=== PATIENT | male | born 1960 | race Caucasian/White ===

== ENCOUNTER 2020-10-16 18:20 | Emergency (ER) | payer OTHER, SELFPAY ==
[2020-10-16] VITALS (15 sets, daily range): BP systolic 128–155; BP diastolic 77–94; PULSE 76–100; RESP 17–28; TEMP 36.3; O2SAT 87–97
--- NOTE | ~2020-10-16 | XR_ITS ---
EXAMINATION: XR chest 1V portable DATE: 10/16/2020 19:22 INDICATION: Transient alteration of awareness, COPD and shortness of breath TECHNIQUE: frontal view of the chest was obtained. COMPARISON: Chest radiograph dated 04/09/2018 FINDINGS: New subtle patchy airspace opacities in the right mid and bilateral lower lung zones. No pleural effu gerardo or pneumothorax. The cardiomediastinal silhouette is normal. Moderate thoracic spondylosis. IMPRESSION: 1. Subtle patchy airspace opacities in the right mid and bilateral lower lung zones which could repre sent pneumonia, atelectasis and/or pulmonary edema. Reviewed, dictated and finalized at location A. RAL LAW CLERK IMPRESSION: 1. Subtle patchy airspace opacities in the right mid and bilateral lower lung z ones which could represent pneumonia, atelectasis and/or pulmonary edema.
--- NOTE | ~2020-10-16 | CT_ITS ---
EXAMINATION: CT brain wo con DATE: 10/16/2020 19:30 INDICATION: Confusion TECHNIQUE: Computed tomography (CT) of the head was performed without intravenous contrast. Sagittal and coronal reconstructions were performed. The mA was adjusted according to patient size. Iterative reconstruction technique was employed. The dose-length product was 681.00 mGy-cm. COMPARISON: None FINDINGS: No acute intracranial hemorrhage, acute infarction or abnormal extra axial fluid collection. There is mild scattered white matter hypoattenuation consistent with chronic small vessel ischemic disease. S ymmetric prominence subarachnoid spaces overlying the convexities consistent with mild age-appropriat e diffuse cerebral volume loss. Ventricles are normal and symmetric. No mass/mass effect. Mucosal thi ckening the bilateral maxillary sinuses. The orbits and mastoid air cells are normal. Intracranial ca lcified cerebral atherosclerosis is noted. IMPRESSION: 1. No acute intracranial process. 2. Age-related changes including mild diffuse on loss and mild scattered white matter hypoattenuation consistent with chronic small vessel ischemic disease. Reviewed, dictated and finalized at location A. UTER LAB ASSISTANT
--- NOTE | 2020-10-16 18:24 | ECG_ITS ---
Measurements Intervals [place] Rate: 74 P: 72 WI: 205 QRS: 198 QRSD: 96 T: 79 QT: 408 QTc: 455 Interpretive Statements SINUS RHYTHM BORDERLINE AV CONDUCTION DELAY BASELINE ARTIFACT- II, III, AVR, AVL, AVF, V3-V6 BORDERLINE ECG Electronically Signed On 10-21-2020 12:24:04 REAL ESTATE SALES ASSOCIATE by Alberto Queen D.O.
--- NOTE | 2020-10-16 18:40 | PC.NURSE ---
provider in room.
--- NOTE | 2020-10-16 18:41 | ED.GENADULT ---
HPI - General Adult General Chief complaint: Shortness of Breath/Dyspnea Stated complaint: generalized weakness Time Seen by Provider: 10/16/20 18:24 Source: patient Mode of arrival: ambulatory Limitations: no limitations History of Present Illness HPI narrative: A 59-year-old male presents to the emergency department with complaints of shortness of breath and generally not feeling well. Patient states that this has been going on for some time. He is very sleepy and difficult to arouse at times. He denies any chest pain, abdominal pain. Related Data Home Medications Medication Instructions Recorded Confirmed No Home Medications 10/16/20 10/16/20 Allergies Allergy/AdvReac Type Severity Reaction Status Date / Time Penicillins Allergy Unknown Other Verified 10/16/20 18:36 Review of Systems Review of Systems: Narrative: CONSTITUTIONAL: Denies fever, chills, or sweats. EYES: Denies visual changes, redness, or discharge. ENT: Denies rhinorrhea, congestion, sore throat, or otalgia. CARDIOVASCULAR: Denies chest pain, palpitations, or edema. RESPIRATORY: Denies cough or dyspnea. GASTROINTESTINAL: Denies abdominal pain, nausea, vomiting, or diarrhea. GENITOURINARY: Denies dysuria or hematuria. SKIN: Denies rash or itching. MUSCULOSKELETAL: Denies back pain, joint pain, or myalgia. NEUROLOGIC: Denies headache, numbness, dizziness, or weakness. PSYCHIATRIC: Denies anxiety or depression. Exam Narrative: Exam Narrative: GENERAL: Well-appearing, well-nourished, and in no acute distress. HEAD: Normocephalic, atraumatic. EYES: PERRLA and EOMI. ENT: Nares clear, no rhinorrhea or epistaxis. Mucous membranes moist. Oropharynx without tonsillar hypertrophy exudate or other lesions. Bilateral TMs pearly cobb nonbulging NECK: Supple. No adenopathy or masses. No carotid bruits or JVD CHEST: Clear to auscultation. No respiratory distress. No wheezes rales or rhonchi HEART: Regular rate and rhythm. No murmur heard. Normal peripheral pulses. ABDOMEN: Soft, nontender, nondistended, normal active bowel sounds. EXTREMITIES: Normal range of motion. No edema. SKIN: Warm, dry, no rash. NEURO: No focal deficits. Alert and oriented x3. Somnolent, easily arousable PSYCH: Normal mood and affect. Course Reevaluation(s) Reevaluation #1: Reevaluated patient and provided care update. He had been sleeping comfortably during this time. He states that after the IV fluids and some rest he is feeling much better. Patient does state that he is ready to go. Time: 23:25 Vital Signs Vital signs: Vital Signs Temperature 36.3 C L 10/16/20 18:27 Pulse Rate 76 10/16/20 18:27 Respiratory Rate 22 H 10/16/20 18:27 Blood Pressure 136/90 10/16/20 18:27 Pulse Oximetry 97 10/16/20 18:27 Temperature 36.3 C L 10/16/20 18:27 Pulse Rate 96 10/16/20 23:21 Respiratory Rate 24 H 10/16/20 23:21 Blood Pressure 149/94 H 10/16/20 23:21 Pulse Oximetry 95 10/16/20 23:21 Medical Decision Making MDM Narrative Medical decision making narrative: In brief this was a 59-year-old male [facility] complaints of generalized fatigue and malaise. It was noted that the patient was cold upon arrival, he is known to be homeless. Work-up of the patient did show slight elevation in his creatinine. His last one in the system was approximately 3 years ago and it is unclear if this creatinine is his baseline or a acute elevation. Patient was given IV fluids for this. He did also have a mild elevation in his CK again was given fluids for this. Patient's hemogram was unremarkable. The rest of his examination was unremarkable as well. Upon discharge patient was given information for local homeless shelters so that way he had somewhere to go. Medical Records Medical records reviewed: Yes I reviewed the patient's medical records. Vital Signs Vital Signs: Vital Signs Temperature 36.3 C L 10/16/20 18:27 Pulse Rate 76 10/16/20 18:27 Respir
--- NOTE | 2020-10-16 19:15 | PC.NURSE ---
resting on stretcher. appears comfortable. on school lunch monitor. appears to be sleeping most of the time. arouses easily. labs drawn.
[2020-10-16 19:25] LABS: Basophils Percent Auto 0.4 % (0.2-1.2); Eosinophils Percent Auto 0.2 % (0-4.4); Hematocrit 46.5 % (42.0-52.0); Hemoglobin 15.6 g/dL (14.0-18.0); Immature Granulocyte Absolute 0.02 K/mm3 (0.00-0.031); Immature Granulocyte Percent A 0.4 % (0-0.5); Immature Platelet Fraction Pct 1.6 % (0.9-11.2); Lymphocytes Absolute Auto 0.76 K/mm3 (0.9-3.2); Lymphocytes Percent Auto 13.6 % (18.3-44.2); Mean Corpuscular HGB Conc 33.5 g/dl (32-36); Mean Corpuscular Volume 83.3 fl (80-100); Mean Platelet Volume 8.5 fl (7.4-10.4); Monocytes Absolute Auto 0.3 K/mm3 (0.1-0.6); Monocytes Percent Auto 5.2 % (2.6-8.5); Neutrophils Absolute Auto 4.5 K/mm3 (1.3-6.7); Neutrophils Percent Auto 80.2 % (45.5-73.1); Platelet Count Result 135 k/mm3 (150-375); Red Blood Count 5.58 M/mm3 (4.6-6.20); Red Cell Distribution Width 13.4 % (11.5-14.5); White Blood Count 5.6 K/mm3 (4.5-10.0)
[2020-10-16 19:34] LABS: Acetaminophen < 10 ug/mL (10-30); Ammonia < 9 umol/L (9-30); Ethanol < 10 mg/dL (<10); Salicylate < 1.0 mg/dL (2-20)
[2020-10-16 19:35] LABS: Alanine Aminotransferase 29 U/L (4-50); Albumin Level 4.6 g/dL (3.5-5.1); Alkaline Phosphatase 83 U/L (38-126); Anion Gap 10 mmol/L (8-16); Aspartate Amino Transferase 53 U/L (17-59); Bilirubin,Total 0.6 mg/dL (0.2-1.3); Blood Urea Nitrogen 37 mg/dL (9-20); Calcium 9.5 mg/dL (8.4-10.2); Carbon Dioxide 30 mmol/L (22-30); Chloride 91 mmol/L (98-107); Creatine Kinase 340 U/L (55-170); Estimated CRCL calculation 37 ml/min; Estimated Glomerular Filt Rate 32; Glucose 112 mg/dL (75-110); Potassium 4.4 mmol/L (3.4-5.0); Sodium 131 mmol/L (137-145)
[2020-10-16 19:47] LABS: Troponin I 0.034 ng/mL (0.000-0.034)
--- NOTE | 2020-10-16 20:14 | PC.NURSE ---
resting on stretcher. continues to sleep off and on. appears comfortable. no distress noted. arouses easily. laser/electro optics technician to room to collect urine specimen.
[2020-10-16 20:31] LABS: Alveolar/Arterial O2 Gradient 40.3 mmHg; Base Excess ABG -5.7 mEq/l (+/-2.0); Device ROOM AIR; Fractional Inspired Oxygen 21 %; Modified Allen's Test Pass; Oxygen Content ABG 19.3 %vol (16.0-22.0); Oxygen Saturation ABG 92.7 % (95.0-100.0); Oxyhemoglobin 91.1 % THb (90.0-100.0); PCO2 ABG 35.2 mmHg (35.0-45.0); PO2 ABG 67.3 mmHg (80.0-100.0); Site Drawn LEFT RADIAL; Total Hemoglobin 15.1 g/dL (12.0-18.0); pH ABG 7.351 (7.350-7.450)
--- NOTE | 2020-10-16 21:29 | PC.NURSE ---
patient asleep. awakened easily. urinal given. patient advised we need urine specimen to complete his ED work up.
--- NOTE | 2020-10-16 21:40 | PC.NURSE ---
urine specimen collected and sent to lab.
--- NOTE | 2020-10-16 21:47 | PC.NURSE ---
report given to Kasi CIFUENTES
[2020-10-16 21:49] LABS: T4 Thyroxine 7.08 ug/dL (5.53-11.0)
[2020-10-16 21:52] LABS: Add Urine Microscopic? YES; Appearance Urine Clear (Clear); Bacteria Urine Trace /hpf; Bilirubin Urine Negative (Negative); Blood Urine Negative (Negative); Color Urine Amber (Yellow); Glucose Urine UA Negative (Negative); Hyaline Casts Urine 30-49 /lpf; Ketones Urine Negative (Negative); Leukocyte Esterase Ur Negative LEU/UL (Negative); Mucus Urine Few /lpf; Nitrate Urine Negative (Negative); Protein Urine 2+ mg/dL (Negative); RBC Urine 0-2 /hpf (0-2); Specific Grav Ur 1.023 (1.001-1.035); Squamous Epithelial Cell Urine Few /hpf (Few)
[2020-10-16] MEDS: LACTATED RINGERS 1,000 ML 999 ML IV CONT (21:55)
[2020-10-16 23:15] LABS: Barbiturate Screen Urine Negative (Negative); Benzodiazepines Screen Urine Negative (Negative)
[2020-10-16 23:18] LABS: Cannabinoid Screen Urine Negative (Negative); Cocaine Screen Urine Negative (Negative); Methadone Screen Urine Negative (Negative); Opiate Screen Urine Negative (Negative); Phencyclidine Screen Urine Negative (Negative)
[2020-10-16 23:36] LABS: Amphetamine Screen Urine Positive (Negative)
[2020-10-17 00:04] VITALS: BP 150/85; PULSE 83; RESP 24; O2SAT 95
== END 2020-10-17 00:05 | disposition home or self-care (01) ==
PROVIDERS: Emergency Provider Emergency Medicine; PCP Internal Medicine Gastroenterology
DX: R53.83 Other fatigue (principal); R53.81 Other malaise; E86.0 Dehydration; Z59.0 Homelessness; R91.8 Other nonspecific abnormal finding of lung field
CPT/HCPCS: 36415; 36600; 70450; 71045; 80053; 80307; 81001; 82140; 82550; 82805; 84436; 84443; 84484; 85025; 85055; 93005; 96360; 99284; J7120

== ENCOUNTER 2021-03-05 23:54 | Observation (INO) | payer SELFPAY ==
--- NOTE | 2021-03-05 | ECG_ITS ---
Measurements Intervals [place] Rate: 99 P: 73 MO: 180 QRS: 91 QRSD: 94 T: 57 QT: 349 QTc: 449 Interpretive Statements SINUS RHYTHM POSSIBLE LEFT ATRIAL ENLARGEMENT RIGHT AXIS DEVIATION BASELINE ARTIFACT- I, II, III, AVR, AVL, AVF, V1-V6 BORDERLINE ECG Electronically Signed On 03-07-2021 11:58:35 CDT by Alberto Queen D.O.
--- NOTE | ~2021-03-05 | CT_ITS ---
EXAMINATION: CT brain wo con EXAM DATE: 03/06/2021 01:40 INDICATION: Unresponsive. Altered mental status. TECHNIQUE: Spiral CT of the head was performed without contrast. Axial, coronal and sagittal images were reviewed. The dose-length product (DLP) for this examination was 605.33 mGy-cm. The exposure w as tailored according to patient size, and iterative reconstruction (ASIR) was used as additional dos e reduction technique. Comparison is made to prior examination from 10/16/2020. FINDINGS: There is no acute intraparenchymal hemorrhage. No evidence of intraparenchymal brain mass lesion. No evidence of acute infarction. Please note that initial head CT has limited sensitivity f or small or acute infarctions. There is mild periventricular and subcortical hypodensity, nonspecific but probably related to small vessel ischemic disease. There is moderate prominence of the sulci a nd ventricles related to cerebral atrophy. There is intracranial carotid arteriosclerosis. There a re no extra-axial collections. There is no mass effect or midline shift. There is disconjugate gaze . Soft tissue is unremarkable. Evidenced maxillary sinus mucoperiosteal disease and old right orbita l wall fracture. IMPRESSION: 1. No acute intracranial findings. 2. Chronic age related findings. Reviewed, dictated and finalized at location A.
--- NOTE | ~2021-03-05 | CT_ITS ---
EXAMINATION: CT soft tissue neck wo con EXAM DATE: 03/06/2021 05:16 INDICATION: Stridor. TECHNIQUE: Spiral CT of the neck was performed without contrast. Axial, coronal and sagittal images were reviewed. The dose-length product (DLP) for this examination was 509.94 mGy-cm. The exposure was tailored according to patient size (auto mA exposure control), and iterative reconstruction (ASIR ) was used as additional dose reduction technique. There is no prior study for comparison. FINDINGS: The thyroid gland is unremarkable. The submandibular and parotid glands are symmetric. There is no cervical lymphadenopathy. There are no masses identified. The superior mediastinum is unremarkable. There is moderate to severe stenosis of the trachea lumen for short segment, about 3.5 cm below the g lottis, with the lumen measuring 4 x 8 mm. Could be from prior intubation. Mild to moderate thickening of the epiglottis and aryepiglottic folds. Parapharyngeal and pre-glottic fat planes are preserved. Limited evaluation of cervical vessels on this noncontrast study. The orbits are unremarkable. Mild to moderate right maxillary sinus mucoperiosteal thickening. Apical emphysema. There is right clavicular fracture medially with comminution, age indeterminate. No solid bone bridging. Severe cervical disc disease. IMPRESSION: 1. Age-indeterminate right clavicular fracture medially. 2. Mild to moderate epiglottis and aryepiglottic fold thickening. 3. 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 4. Emphysema. Reviewed, dictated and finalized at location A.
--- NOTE | ~2021-03-05 | CT_ITS ---
EXAMINATION: CT diagnostic chest wo con EXAM DATE: 03/06/2021 04:36 INDICATION: Dyspnea. TECHNIQUE: Spiral CT of the chest without contrast. Axial, coronal and sagittal images of the chest were reviewed. Coronal maximum intensity pixel images of chest reviewed. The dose-length product ( DLP) for this examination was 472.31 mGy-cm. The exposure was tailored according to patient size (au to mA exposure control), and iterative reconstruction (ASIR) was used as additional dose reduction te chnique. There is no prior study for comparison. FINDINGS: There is right lower lobe segmental, left lower lobe subsegmental atelectasis. Pulmonary v ascular congestion and some prominent dependent reticulation with groundglass opacities, atelectasis versus edema. Trace right pleural effusion. Some debris in the right lower lobe interlobar bronchus . There is no mediastinal, hilar or axillary lymphadenopathy. There is no pneumothorax. There is mild cardiomegaly. There is moderate coronary arterial calcification, arterial sclerosis. Upper ab domen is unremarkable. Chronic appearing T12 burst fracture with moderate to severe loss of this ve rtebral body height anteriorly and centrally, about 6 mm of retropulsion. Right clavicular mildly com minuted fracture medially without solid bone bridging, could be acute or subacute. IMPRESSION: 1. Right clavicular fracture medially, could be acute or subacute. Clinical correlation. 2. Mild cardiomegaly. Possible mild pulmonary edema. 3. Atelectasis, subsegmental in right lower lobe. 4. Chronic T12 burst fracture. Reviewed, dictated and finalized at location A. IMPRESSION: 1. Right clavicular fracture medially, could be acute or subacute. Clinical co rrelation. 2. Mild cardiomegaly. Possible mild pulmonary edema. 3. Atelectasis, subsegmental in right lower lobe. 4. Chronic T12 burst fracture.
--- NOTE | ~2021-03-05 | XR_ITS ---
EXAMINATION: XR chest 1V portable EXAM DATE: 03/06/2021 01:05 INDICATION: Found unresponsive. Shortness of breath. TECHNIQUE: Portable AP frontal chest x-ray was obtained. Comparison is made to prior examination from 01/14/2021. FINDINGS: Diffuse abnormal reticulonodular opacities, pneumonia and/or edema most likely. Please clin ically correlate. The cardiomediastinal silhouette is prominent but magnified on this AP technique. T here is no pneumothorax suspected. There are no pleural effusions. There are mild bony degenerative c hanges. Prior exam had small amount of basilar airspace disease. IMPRESSION: Diffuse abnormal reticulation, probably acute edema and/or pneumonia. Reviewed, dictated and finalized at location A. IMPRESSION: Diffuse abnormal reticulation, probably acute edema and/or pneumon ia.
[2021-03-05 23:52] VITALS: BP 152/97; PULSE 104; RESP 23; TEMP 36.5; O2SAT 100
[2021-03-05 23:58] VITALS: O2SAT 100
[2021-03-06] VITALS (51 sets, daily range): BP systolic 118–184; BP diastolic 76–127; PULSE 69–107; RESP 13–24; TEMP 36.2–37.1; O2SAT 91–100; BMI 23.9
[2021-03-06] MEDS: methylPREDNISolone SOD SUCC 125 MG VIAL IV PUSH (00:06)
--- NOTE | 2021-03-06 00:19 | PC.NURSE ---
Patient had a white pill that fell out of his pocket. Verified it on [facility], is 1mg lorazepam. ERP notifed. Pill also sent down to pharmacy to be verified.
[2021-03-06 00:29] LABS: Basophils Absolute Auto 0.1 K/mm3 (0.0-0.1); Eosinophils Absolute Auto 0.5 K/mm3 (0-0.3); Eosinophils Percent Auto 7.4 % (0-4.4); Hematocrit 44.1 % (42.0-52.0); Immature Granulocyte Absolute 0.04 K/mm3 (0.00-0.031); Immature Granulocyte Percent A 0.6 % (0-0.5); Lymphocytes Absolute Auto 1.36 K/mm3 (0.9-3.2); Lymphocytes Percent Auto 21.8 % (18.3-44.2); Mean Corpuscular HGB Conc 31.7 g/dl (32-36); Mean Corpuscular Hemoglobin 27.6 pg (26-34); Mean Platelet Volume 8.5 fl (7.4-10.4); Monocytes Absolute Auto 0.5 K/mm3 (0.1-0.6); Monocytes Percent Auto 8.2 % (2.6-8.5); Neutrophils Absolute Auto 3.8 K/mm3 (1.3-6.7); Platelet Count Result 178 k/mm3 (150-375); Red Blood Count 5.07 M/mm3 (4.6-6.20); Red Cell Distribution Width 13.9 % (11.5-14.5); White Blood Count 6.3 K/mm3 (4.5-10.0)
--- NOTE | 2021-03-06 00:29 | PC.NURSE ---
0026 Moises from pharmacy calls to inform this nurse that the medication that had fallen out of the patient's pocket was a viagra/sildenafil tab 100mg. ERP notified.
[2021-03-06 00:36] LABS: Alanine Aminotransferase 41 U/L (4-50); Albumin Level 4.1 g/dL (3.5-5.1); Alkaline Phosphatase 86 U/L (38-126); Anion Gap 9 mmol/L (8-16); Aspartate Amino Transferase 51 U/L (17-59); Bilirubin,Total 0.4 mg/dL (0.2-1.3); Blood Urea Nitrogen 18 mg/dL (9-20); Calcium 9.2 mg/dL (8.4-10.2); Carbon Dioxide 30 mmol/L (22-30); Chloride 102 mmol/L (98-107); Estimated Glomerular Filt Rate > 60; Ethanol < 10 mg/dL (<10); Glucose 103 mg/dL (75-110); Lactic Acid Reflex 0.8 mmol/L (0.7-2.1); Potassium 4.3 mmol/L (3.4-5.0); Sodium 141 mmol/L (137-145)
[2021-03-06 00:37] LABS: Prothrombin Time 13.9 Seconds (11.1-14.7)
[2021-03-06 00:38] LABS: Partial Thromboplastin Time 34.2 SECONDS (22.3-36.8)
[2021-03-06 00:39] LABS: Barbiturate Screen Urine Negative (Negative); Benzodiazepines Screen Urine Positive (Negative); Cannabinoid Screen Urine Negative (Negative); Cocaine Screen Urine Negative (Negative); Methadone Screen Urine Negative (Negative); Opiate Screen Urine Positive (Negative); Phencyclidine Screen Urine Negative (Negative)
[2021-03-06 00:50] LABS: Add Urine Microscopic? YES; Appearance Urine Clear (Clear); Bacteria Urine Trace /hpf; Bilirubin Urine Negative (Negative); Color Urine Amber (Yellow); Glucose Urine UA Negative (Negative); Ketones Urine Negative (Negative); Leukocyte Esterase Ur Trace LEU/UL (Negative); Mucus Urine Few /lpf; Nitrate Urine Negative (Negative); Protein Urine 1+ mg/dL (Negative); RBC Urine 0-2 /hpf (0-2); Specific Grav Ur 1.027 (1.001-1.035); Squamous Epithelial Cell Urine Few /hpf (Few); Transitional Epi Cells Urine Rare /hpf (None Seen)
[2021-03-06] MEDS: IPRATROPIUM BR 0.02% INH SOLN 0.5 MG/2.5 ML VIAL INHALATION ×3 (00:52→10:33)
[2021-03-06] MEDS: ALBUTEROL SULFATE NEB 2.5 MG/0.5 ML INH 5 MG INHALATION ×2 (00:52→05:59)
[2021-03-06 00:57] LABS: Alveolar/Arterial O2 Gradient 20.1 mmHg; Base Excess ABG 3.2 mEq/l (+/-2.0); Fractional Inspired Oxygen 30 %; HCO3 ABG 29.9 mEq/l (22.0-26.0); Oxygen Content ABG 19.9 %vol (16.0-22.0); Oxygen Saturation ABG 98.5 % (95.0-100.0); Oxyhemoglobin 95.2 % THb (90.0-100.0); PCO2 ABG 53.9 mmHg (35.0-45.0); PO2 ABG 130.5 mmHg (80.0-100.0); PO2 FiO2 Ratio Arterial Blood 4.35 %; Total Hemoglobin 14.7 g/dL (12.0-18.0); pH ABG 7.362 (7.350-7.450)
[2021-03-06 00:58] LABS: Device BIPAP; Site Drawn RIGHT BRACHIAL
[2021-03-06 00:59] LABS: Blood Urine Negative (Negative)
[2021-03-06 00:59] LABS: Expiratory Pressure 5 cmH2O; Inspiratory Pressure 15 cmH2O
[2021-03-06 00:59] LABS: NT Pro B Type Natriuretic Pept 304 pg/mL (5-100); Troponin I 0.018 ng/mL (0.000-0.034)
[2021-03-06] MEDS: NALOXONE HCL 0.4 MG/ML VIAL (01:00)
--- NOTE | 2021-03-06 01:04 | PC.NURSE ---
VORB 0100 give 0.4mg narcan IVP.
--- NOTE | 2021-03-06 01:08 | ED.GENADULT ---
HPI - General Adult General Chief complaint: Shortness of Breath/Dyspnea Stated complaint: SOB/ CPAP Source: RN notes reviewed History of Present Illness HPI narrative: Patient presents emergency department via EMS for altered mental status and shortness of breath. History is per EMS as the patient is unable to give any history EMS to been called to the house by a acquaintance of the patient and the patient has supposedly gone to the acquaintances house for amphetamine use and a sexual encounter with the acquaintance had gone to another room and when she returned the patient has been unresponsive and EMS have been called when EMS got there they did note there is inhaler by the patient the patient appeared to be in some respiratory distress. The patient was given 2 of Narcan with no change in mental status other than patient became mildly more combative patient will withdrawal to painful stimuli but does not follow any verbal commands. The acquaintance did not know the patient's name and no other identifiers on the patient Related Data Home Medications Medication Instructions Recorded Confirmed No Home Medications 03/06/21 03/06/21 Allergies Allergy/AdvReac Type Severity Reaction Status Date / Time Unable to Assess Allergy Verified 03/06/21 00:03 Review of Systems Review of Systems: ROS unobtainable: Yes unobtainable due to medical condition [facility] Family History Family History (Updated 03/06/21 @ 10:57 by eMghan Liang RN) Other Unknown family medical history Social History Social History Smoking packs per day: 0.5 Smoking cigarettes per day: 10.0 Years smoked: 47 Smoking pack-years: 23.50 Smoking status: Current every day smoker Tobacco type: cigarettes Alcohol intake: current Drinks per week: 2 Substance use: current Substance use type: amphetamines, opiates, painkillers and methamphetamine Gender identity (if verbalized by the patient): Male Sexual Orientation (if Verbalized by the Patient): Straight or Heterosexual Spiritual care concerns: No Comments Unable to obtain any past medical surgical or social history secondary to altered mental status Exam Narrative: Exam Narrative: APPEARANCE: Laying in bed with eyes closed no does not respond to verbal stimuli, withdrawals and swings with painful stimuli EYES: Bilateral pupils are pinpoint HEENT: Normocephalic, atraumatic, OMM RESPIRATORY: No respiratory distress decreased breath sounds in the bilateral lower lung rojo with wheezing in the upper lung rojo CARDIOVASCULAR: Regular rate and rhythm without murmurs rubs or gallops. ABDOMINAL: Soft, nontender, nondistended, no rebound or guarding MUSCULOSKELETAl: Moves all extremities. No clubbing, cyanosis or edema. NEURO: Unresponsive to verbal stimuli withdrawals to painful stimuli positive gag reflex SKIN:: Warm, dry. No rashes lesions or abrasions Course Course Emergency Course: Patient was noted to have a white pill in his pocket this pill was sent down to pharmacy for identification and it was determined that the pill was Viagra Plan discussed with Dr. Gu presentation work-up agrees with mission at this time request patient be admitted to the ICU Called discussed with Dr. Brown presentation work-up request CT of the chest for further evaluation of infiltrates. Accepts admission to ICU if requested by hospitalist service Dr. Gu came down to evaluate the patient again requests admission to the ICU Patient weaned off of BiPAP and is on 2 L nasal cannula Patient is now noted to be having some stridor Patient is progressively becoming more arousable he is not easily arousable with sternal rub he is not able to tell me his name is Sonal he does shake his head that he did drugs he does state he smokes there is a noted scar over the patient's trachea and when asked if he had a previous tracheostomy he shakes his head ye
--- NOTE | 2021-03-06 02:27 | PC.NURSE ---
Contacted lab to have CK added on. Spoke with Julia.
[2021-03-06 02:35] LABS: Creatine Kinase 161 U/L (55-170)
--- NOTE | 2021-03-06 04:15 | PC.NURSE ---
Patient taken of CPAP/BIPAP upon VORB and placed on 2L via NC. Patient tolerating well. Patient then taken to CT.
--- NOTE | 2021-03-06 05:29 | PC.NURSE ---
Patient's 3hour trop drawn and sent to lab.
--- NOTE | 2021-03-06 05:53 | PC.NURSE ---
Patient becoming more awake. Patient speaking with ERP and registration. Patient receiving a breathing treatment at this time.
[2021-03-06] MEDS: SODIUM CHLORIDE 0.9% IV 1,000 ML 999 ML IV CONT (05:59)
[2021-03-06 06:01] LABS: Troponin I 0.013 ng/mL (0.000-0.034)
--- NOTE | 2021-03-06 06:10 | ADMGEN ---
This patient, Flip Pruitt, was admitted to Intensive Care Unit-1. Patient/family oriented to hospital policies and general routines including ID bracelet, bed and alarms, visiting hours, pain management, procedures, bathroom and other care routines, personal items, smoking policy, room service/diet, and visiting hours. Information on how to activate the Rapid Response Team has been discussed. Patient/Family are encouraged to report perceived risks to care and to ask questions if they do not understand what they are told or what they should do.
--- NOTE | 2021-03-06 06:21 | PM.IMHP ---
H&P: HPI History of Present Illness Date/Time: 03/06/21 06:21 Chief Complaint: altered mental status, shortness of breath Narrative: Patient presents emergency department via EMS for altered mental status and shortness of breath. History is per EMS as the patient is unable to give any history. EMS to been called to the house by an acquaintance of the patient and the patient has supposedly gone to the acquaintances house for amphetamine use and a sexual encounter. When the acquaintance had gone to another room and when she returned the patient was found to be unresponsive and EMS was then called. When EMS got there they did note there is inhaler by the patient and the patient appeared to be in some respiratory distres. The pateint was given narcan with no change in mental status except the pateint became more combative. patient withdrew to painful stimuli but did not follow any verbal commands. He was then brought to the ED. Inthe ED, he was noted to be wheezy and hence put on bipap to help with his work of breathing. His vitals remained stable. He was unreposnive however was able to maintain his airway with good saturation. He withdrew to painful stimuli. His identification could not be verified nor his medical history. he had white pill in his pocket which was identified to be viagra. his labwork has been unreamarkable except for positive for opiates, benzos and meth. his ct head is negative. his cxr had some opacities bilaterally. ct cheest was done for tihs and noted to be bilateral atelectasis. While in the ED, he was noted to be more arousable slowly and was able to tell the ED physician his name. He had hx of previous tracheostomy for a throat cancer. he also admitted to using drugs which included meth. no further history could be elucidated during the evaluation Review of Systems Review of Systems: ROS unobtainable: Yes unobtainable due to mental status PMFSH Comments Past medical, surgical, family histoyr and social history could not be obatined at this time. Meds Home Medications and Allergies Allergies Allergy/AdvReac Type Severity Reaction Status Date / Time Unable to Assess Allergy Verified 03/06/21 00:03 Vital Signs Vital Signs - 24 hr 03/05/21 23:52 03/05/21 23:58 03/06/21 00:33 Temperature 97.7 F Pulse Rate 104 H 102 H Respiratory Rate 23 H 17 Blood Pressure 152/97 H Pulse Oximetry 100 100 03/06/21 00:45 03/06/21 00:46 03/06/21 00:47 Temperature Pulse Rate 103 H 103 H 96 Respiratory Rate 17 17 18 Blood Pressure 127/76 Pulse Oximetry 03/06/21 00:53 03/06/21 01:15 03/06/21 01:16 Temperature Pulse Rate 105 H 105 H 104 H Respiratory Rate 20 20 19 Blood Pressure 147/97 H Pulse Oximetry 03/06/21 01:30 03/06/21 01:31 03/06/21 01:43 Temperature Pulse Rate 105 H 101 H Respiratory Rate 20 20 Blood Pressure 154/97 H 131/92 H Pulse Oximetry 03/06/21 01:45 03/06/21 01:46 03/06/21 02:00 Temperature Pulse Rate 105 H 101 H 98 Respiratory Rate 18 16 14 Blood Pressure 118/84 Pulse Oximetry 03/06/21 02:15 03/06/21 02:16 03/06/21 02:30 Temperature Pulse Rate 99 99 98 Respiratory Rate 19 18 19 Blood Pressure 135/94 H Pulse Oximetry 03/06/21 02:31 03/06/21 02:43 03/06/21 02:44 Temperature 98.3 F Pulse Rate 98 97 105 H Respiratory Rate 19 19 20 Blood Pressure 140/88 140/88 Pulse Oximetry 98 99 03/06/21 02:45 03/06/21 02:46 03/06/21 03:00 Temperature Pulse Rate 98 96 98 Respiratory Rate 17 20 19 Blood Pressure 129/89 Pulse Oximetry 03/06/21 03:01 03/06/21 03:15 03/06/21 03:16 Temperature Pulse Rate 100 97 95 Respiratory Rate 22 H 17 15 Blood Pressure 132/93 H 134/89 Pulse Oximetry 03/06/21 03:30 03/06/21 03:31 03/06/21 03:45 Temperature Pulse Rate 98 97 96 Respiratory Rate 18 17 17 Blood Pressure 139/90 Pulse Oximetry 100 03/06/21 03:46 03/06/21 04:01 03/06/21 04:04 Temperature
--- NOTE | 2021-03-06 06:22 | PC.NURSE ---
0610- Unable to ask admission questions. Patient is minimally responsive and has no family contacts at this time.
[2021-03-06] MEDS: SODIUM CHLORIDE 0.9% IV 1,000 ML 125 ML IV CONT ×2 (06:25→15:59)
--- NOTE | 2021-03-06 06:35 | PC.NURSE ---
[id number] Dr Gu made aware pt is in room. Vitals and oxygen use reviewed and aware pt is minimally responsive.
[2021-03-06] MEDS: methylPREDNISolone SOD SUCC 125 MG VIAL 60 MG IV PUSH ×3 (07:25→21:28)
--- NOTE | 2021-03-06 09:18 | WPDCNINT ---
Assessment and Plan Assessment and plan (1) Acute and chronic respiratory failure: Code(s): J96.20 - Acute and chronic respiratory failure, unspecified whether with hypoxia or hypercapnia Status: Acute Assessment and Plan: Patient appears to have baseline COPD and also presented with toxic encephalopathy from drug overdose He ABG showed compensated hypercarbia He was initially placed on BiPAP Currently weaned off and on nasal cannula No distress Monitor in ICU Bronchodilators and steroids (2) Stridor: Code(s): R06.1 - Stridor Status: Acute Assessment and Plan: Patient has mild stridor on exam Likely secondary to past No respiratory distress and maintaining adequate saturation on nasal cannula This could be his baseline and secondary to patient's past tracheostomy or treatment of his laryngeal cancer. I did speak to this patient by phone few days ago as he has a family member of of other patients. His voice was clearly hoarse and I could not understand half of his speech ENT was consulted and recommend steroids at this time and they will evaluate patient CT neck was done and preliminary report showed focal stenosis of trachea at level of thoracic inlet along with thickness of epiglottis. This appears to be non infectious changes considering patient's presentation, normal WBC and nontoxic presentation. Patient is already on Rocephin which should cover for infective epiglottitis a (3) Hx of tracheostomy: Code(s): Z98.890 - Other specified postprocedural states Status: Acute (4) Toxic encephalopathy: Code(s): G92 - Toxic encephalopathy Status: Acute Assessment and Plan: Secondary to drug abuse UDS was positive for opiates, benzodiazepine and amphetamine Protecting airway this point and slowly improving Continue to hold sedatives and monitor Head CT was negative (5) Acute drug overdose: Code(s): T50.901A - Poisoning by unspecified drugs, medicaments and biological substances, accidental (unintentional), initial encounter Status: Acute Assessment and Plan: See above IV fluids (6) Polysubstance overdose: Code(s): T50.901A - Poisoning by unspecified drugs, medicaments and biological substances, accidental (unintentional), initial encounter Status: Acute (7) UTI (urinary tract infection): Code(s): N39.0 - Urinary tract infection, site not specified Status: Acute Assessment and Plan: UA suggests UTI, WBC normal, patient unable to provide any meaningful history Continue Rocephin Urine and blood cultures Additional Plan DVT prophylaxis -Lovenox Stress ulcer prophylaxis -on Pepcid Nutrition -NPO at this Code Status - Full Code Total Critical Care Time - 30 minutes Due to a high probability of clinically significant, life threatening deterioration, the patient required my highest level of preparedness to intervene emergently and I personally spent this critical care time directly and personally managing the patient. This critical care time included obtaining a history; examining the patient; pulse oximetry; ordering and review of studies; arranging urgent treatment with development of a management plan; evaluation of patient's response to treatment; frequent reassessment; and discussions with other providers. It was exclusive of separately billable procedures and treating other patients and teaching time. Please see Assessment and Plan section and the rest of the note for further information on patient assessment and treatment Bindery Machine Feeder Offbearer Consult Note Consult date: 03/06/21 Time Seen: 08:00 HPI: Flip Pruitt is a 60 year old male was brought in to ED by EMS for altered mental status. History is per EMS as the patient is unable to give any history. EMS to been called to the house by a friend of the patient he went to use drugs with and have a sexual encounter. His friend went to another room and when she returned the patien
[2021-03-06] MEDS: ENOXAPARIN 40 MG/0.4 ML SYRINGE SUB-Q (09:37)
[2021-03-06] MEDS: FAMOTIDINE 20 MG/2 ML VIAL IV PUSH ×2 (09:37→21:26)
[2021-03-06] MEDS: ALBUTEROL SULFATE NEB 2.5 MG/0.5 ML INH INHALATION (10:33)
[2021-03-06] MEDS: LABETALOL HCL INJ 100 MG/20 ML VIAL 20 MG IV PUSH ×2 (11:34→19:11)
[2021-03-06 12:03] LABS: Troponin I < 0.012 ng/mL (0.000-0.034)
--- NOTE | 2021-03-06 12:31 | WPDCN ---
Assessment and Plan Assessment and plan (1) Acute and chronic respiratory failure: Code(s): J96.20 - Acute and chronic respiratory failure, unspecified whether with hypoxia or hypercapnia Status: Acute Assessment and Plan: Patient most likely has recurrence of his cancer which was likely a squamous cell carcinoma. Plan is for the OR for awake tracheostomy. The risks were discussed with the patient including need for further procedures inability to decannulate, damage/change in voice, iinfection damage to vocal cords. Patient voiced understanding of these risks and agreed. See procedure note for laryngoscopic findings. I would continue steroids until tracheostomy performed but discontinue them once tracheostomy performed. But also continue IV antibiotics while in-patient sent him home on 1 week course of Augmentin given the infectious appearance above the glottis. (2) Stridor: Code(s): R06.1 - Stridor Status: Acute (3) Neck infection: Code(s): L08.9 - Local infection of the skin and subcutaneous tissue, unspecified Status: Acute HPI Data of Consult Date/Time: 03/06/21 12:31 Requesting Physician: Valentin Gu MD Primary Care Provider: FUSING MACHINE OPERATOR PHYSICIAN Consult Narrative Narrative: Flip Pruitt is a 60 year old male with a history of squamous cell carcinoma, most likely, status post XRT approximately 3 years ago. Patient presents stridulous to the ER with a history of drug overdose as well. ENT consult for further evaluation and treatment. CT demonstrates airway narrowing non contrasted difficult to ascertain tissue planes. However it is not difficult to view that the airways very narrowed at the level of the glottis and subglottis. Review of Systems Constitutional: Constitutional: Denies fatigue, Denies fever(s) and Denies lethargy Eyes: Eyes: Denies blurry vision and Denies change in vision ENT: Reports as per HPI Cardiovascular: Cardiovascular: Denies chest pain Respiratory: Respiratory: Denies cough Endocrine: Endocrine: Denies fatigue Hematologic/Lymphatic: Hematologic/Lymphatic: Denies easy bleeding, Denies easy bruising and Denies lymphadenopathy Allergic/Immunologic: Allergic/Immunologic: Denies seasonal rhinorrhea [facility] Family History Family History (Updated 03/06/21 @ 10:57 by Meghan Liang RN) Other Unknown family medical history Meds Home Medications and Allergies Allergies Allergy/AdvReac Type Severity Reaction Status Date / Time Unable to Assess Allergy Verified 03/06/21 00:03 Vital Signs Vital Signs - 24 hr 03/05/21 23:52 03/05/21 23:58 03/06/21 00:33 Temperature 36.5 C Pulse Rate 104 H 102 H Respiratory Rate 23 H 17 Blood Pressure 152/97 H Pulse Oximetry 100 100 03/06/21 00:45 03/06/21 00:46 03/06/21 00:47 Temperature Pulse Rate 103 H 103 H 96 Respiratory Rate 17 17 18 Blood Pressure 127/76 Pulse Oximetry 03/06/21 00:53 03/06/21 01:15 03/06/21 01:16 Temperature Pulse Rate 105 H 105 H 104 H Respiratory Rate 20 20 19 Blood Pressure 147/97 H Pulse Oximetry 03/06/21 01:30 03/06/21 01:31 03/06/21 01:43 Temperature Pulse Rate 105 H 101 H Respiratory Rate 20 20 Blood Pressure 154/97 H 131/92 H Pulse Oximetry 03/06/21 01:45 03/06/21 01:46 03/06/21 02:00 Temperature Pulse Rate 105 H 101 H 98 Respiratory Rate 18 16 14 Blood Pressure 118/84 Pulse Oximetry 03/06/21 02:15 03/06/21 02:16 03/06/21 02:30 Temperature Pulse Rate 99 99 98 Respiratory Rate 19 18 19 Blood Pressure 135/94 H Pulse Oximetry 03/06/21 02:31 03/06/21 02:43 03/06/21 02:44 Temperature 36.8 C Pulse Rate 98 97 105 H Respiratory Rate 19 19 20 Blood Pressure 140/88 140/88 Pulse Oximetry 98 99 03/06/21 02:45 03/06/21 02:46 03/06/21 03:00 Temperature Pulse Rate 98 96 98 Respiratory Rate 17 20 19 Blood Pressure 129/89 Pulse Oximetry 03/06/21
--- NOTE | 2021-03-06 12:35 | WPDPROCEDUR ---
Procedures Laryngoscopy Sedation/Analgesia: other (Lidocaine Afrin) Technique: indirect nasal laryngoscopy Complications: none Post-procedure exam: awake, alert Laryngoscopy Comments: Normal sinonasal passage other than some mild right septal deviation. Normal nasopharynx. Normal pharyngeal examination. The laryngeal and supraglottic examination is significant for mild epiglottitis with some purulence on the glottic surface it is difficult to visualize the cords themselves as there is necrotic debris which is likely a recurrence of his carcinoma. Given the nature of the examination I am not able to fully examine the subglottis.
--- NOTE | 2021-03-06 12:36 | PM.IMHP ---
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 Chief Complaint: Respiratory failure, cancer recurrence, respiratory insufficiency, stridor Review of Systems Review of Systems: ROS unobtainable: Yes unobtainable due to medical condition [facility] Family History Family History (Updated 03/06/21 @ 10:57 by Meghan Liang RN) Other Unknown family medical history Meds Home Medications and Allergies Allergies Allergy/AdvReac Type Severity Reaction Status Date / Time Unable to Assess Allergy Verified 03/06/21 00:03 Vital Signs Vital Signs - 24 hr 03/05/21 23:52 03/05/21 23:58 03/06/21 00:33 Temperature 36.5 C Pulse Rate 104 H 102 H Respiratory Rate 23 H 17 Blood Pressure 152/97 H Pulse Oximetry 100 100 03/06/21 00:45 03/06/21 00:46 03/06/21 00:47 Temperature Pulse Rate 103 H 103 H 96 Respiratory Rate 17 17 18 Blood Pressure 127/76 Pulse Oximetry 03/06/21 00:53 03/06/21 01:15 03/06/21 01:16 Temperature Pulse Rate 105 H 105 H 104 H Respiratory Rate 20 20 19 Blood Pressure 147/97 H Pulse Oximetry 03/06/21 01:30 03/06/21 01:31 03/06/21 01:43 Temperature Pulse Rate 105 H 101 H Respiratory Rate 20 20 Blood Pressure 154/97 H 131/92 H Pulse Oximetry 03/06/21 01:45 03/06/21 01:46 03/06/21 02:00 Temperature Pulse Rate 105 H 101 H 98 Respiratory Rate 18 16 14 Blood Pressure 118/84 Pulse Oximetry 03/06/21 02:15 03/06/21 02:16 03/06/21 02:30 Temperature Pulse Rate 99 99 98 Respiratory Rate 19 18 19 Blood Pressure 135/94 H Pulse Oximetry 03/06/21 02:31 03/06/21 02:43 03/06/21 02:44 Temperature 36.8 C Pulse Rate 98 97 105 H Respiratory Rate 19 19 20 Blood Pressure 140/88 140/88 Pulse Oximetry 98 99 03/06/21 02:45 03/06/21 02:46 03/06/21 03:00 Temperature Pulse Rate 98 96 98 Respiratory Rate 17 20 19 Blood Pressure 129/89 Pulse Oximetry 03/06/21 03:01 03/06/21 03:15 03/06/21 03:16 Temperature Pulse Rate 100 97 95 Respiratory Rate 22 H 17 15 Blood Pressure 132/93 H 134/89 Pulse Oximetry 03/06/21 03:30 03/06/21 03:31 03/06/21 03:45 Temperature Pulse Rate 98 97 96 Respiratory Rate 18 17 17 Blood Pressure 139/90 Pulse Oximetry 100 03/06/21 03:46 03/06/21 04:01 03/06/21 04:04 Temperature Pulse Rate 96 96 95 Respiratory Rate 19 17 17 Blood Pressure 122/86 141/100 H Pulse Oximetry 03/06/21 04:17 03/06/21 04:37 03/06/21 04:50 Temperature Pulse Rate 94 98 107 H Respiratory Rate 18 16 19 Blood Pressure Pulse Oximetry 03/06/21 04:51 03/06/21 06:00 03/06/21 06:08 Temperature 36.7 C Pulse Rate 107 H 97 94 Respiratory Rate 17 17 20 Blood Pressure 184/97 H 153/93 H Pulse Oximetry 100 03/06/21 06:10 03/06/21 06:28 03/06/21 08:00 Temperature 36.5 C 37.1 C Pulse Rate 102 H 96 Respiratory Rate 24 H 15 Blood Pressure 144/101 H 167/105 H Pulse Oximetry 93 94 100 03/06/21 10:00 03/06/21 10:34 03/06/21 10:39 Temperature 36.9 C Pulse Rate 98 97 Respiratory Rate 16 20 Blood Pressure 154/127 H Pulse Oximetry 99 98 03/06/21 10:43 03/06/21 11:34 Temperature Pulse Rate 97 97 Respiratory Rate 20 Blood Pressure Pulse Oximetry Exam Neck: Other: Landmarks palpable small pinpoint area of purulence likely representing per site of previous tracheostomy and recurrence. H&P: Results Labs Labs: Short CBC 03/06/21 Range/Units 00:07 WBC 6.3 (4.5-10.0) K/mm3 Hgb 14.0 (14.0-18.0) g/dL Hct 44.1 (42.0-52.0) % Plt Count 178 (150-375) k/mm3 [facility] 03/06/21 00:07 Sodium 141 Potassium 4.3 Chloride 102 Carbon Dioxide 30 BUN 18 Creatinine 0.90 Glucose 103 Calcium 9.2 Cardiac Enzymes 03/06/21 03/06/21 03/06/21 Range/Units 00:07 00:07 05:28 Total Creatine Kinase
--- NOTE | 2021-03-06 12:38 | WPDHPUPDATE1 ---
History and Physical Update Update Date/Time: 03/06/21 12:38 History and Physical has been reviewed, including an updated exam of the patient. There are NO changes in the patient's condition. Risks, benefits, and alternatives have been discussed and questions answered. Patient agrees to proceed with procedure.
--- NOTE | 2021-03-06 13:19 | WPDHPUPDATE1 ---
History and Physical Update Update Date/Time: 03/06/21 13:19 Further discuss the patient's care with [facility]. The patient is currently satting 100% on 2 L of oxygen. At this time the decision was made to transfer to [facility]. I personally discussed the case with Dr. Tee Perrin.
--- NOTE | 2021-03-06 13:23 | PM.EVENT ---
Event Note Event Note Event Note: Over the of the day patient's mental status improved and he was seen by Dr. Salgado off ENT. Patient told me that he had laryngeal cancer diagnosed few years ago and at that time he received radiation therapy and had tracheostomy done for close to 4 months which was then decannulated. He told me that he continues to smoke and has smoked since his teenage years and was heavy smoker in the past and now smokes half pack per day. He also told me that he has history of depression and drug abuse. He told me that yesterday he took Valium, pain pill and methamphetamine. He admitted to doing drugs at least twice a month and this combination. He told me that his voice has been hoarse since he had his cancer but has gotten worse over last 2 months. He also complains of feeling short of breath mostly but on exertion and whenever he smokes cigarettes. He has not seen any physician for last 3 years regarding his laryngeal cancer follow-up. He does admit to taking Celexa for depression. Patient was examined by Dr. Salgado and he recommended initially doing emergent tracheostomy for airway, obtaining biopsy and then transferring patient to [facility] for possible laryngectomy. Patient is currently on Rocephin, IV fluids and steroids which will be continued. Later he discussed case with head and neck surgeon Dr. Perrin from [facility] recommended transfer to [facility] without doing tracheostomy here at [place] which would make the secondary surgery more complicated. I have called and spoken to transfer line at [facility]. Waiting for call back from ICU MD.
--- NOTE | 2021-03-06 14:27 | P.PNCROSS_ITS ---
Event Note Event Note Event Note: Spoke to Dr. Salazar with MICU at [facility]. Discussed the case and she accepted the patient on behalf of Dr. Grover. [facility] does not have bed at this point but will call once bed is available for transfer.
--- NOTE | 2021-03-06 14:27 | PM.EVENT ---
Event Note Event Note Event Note: Spoke to Dr. Salazar with MICU at [facility]. Discussed the case and she accepted the patient on behalf of Dr. Grover. [facility] does not have bed at this point but will call once bed is available for transfer.
--- NOTE | 2021-03-06 18:33 | PM.DS ---
DS: Admitting Diagnosis Admitting Diagnosis Admitting Diagnosis: (1) Neck infection: Code(s): L08.9 - Local infection of the skin and subcutaneous tissue, unspecified Status: Acute Assessment and Plan: Plan is for the OR for awake tracheostomy. The risks were discussed with the patient include damage to voiced damaged vocal cords infection the need for subsequent procedures and severe bleeding. Patient voiced understanding of these risks and agreed. (2) Stridor: Code(s): R06.1 - Stridor Status: Acute (3) Hx of tracheostomy: Code(s): Z98.890 - Other specified postprocedural states Status: Acute (4) Acute and chronic respiratory failure: Code(s): J96.20 - Acute and chronic respiratory failure, unspecified whether with hypoxia or hypercapnia Status: Acute DS: Discharge Diagnosis Discharge Diagnosis (1) Neck infection: Code(s): L08.9 - Local infection of the skin and subcutaneous tissue, unspecified Status: Acute (2) Toxic encephalopathy: Code(s): G92 - Toxic encephalopathy Status: Acute (3) Stridor: Code(s): R06.1 - Stridor Status: Acute (4) Acute and chronic respiratory failure: Code(s): J96.20 - Acute and chronic respiratory failure, unspecified whether with hypoxia or hypercapnia Status: Acute (5) Polysubstance overdose: Code(s): T50.901A - Poisoning by unspecified drugs, medicaments and biological substances, accidental (unintentional), initial encounter Status: Acute (6) Altered mental status: Code(s): R41.82 - Altered mental status, unspecified Status: Acute (7) UTI (urinary tract infection): Code(s): N39.0 - Urinary tract infection, site not specified Status: Acute (8) Abnormal chest xray: Code(s): R93.89 - Abnormal findings on diagnostic imaging of other specified body structures Status: Acute (9) Hx of tracheostomy: Code(s): Z98.890 - Other specified postprocedural states Status: Acute (10) Acute drug overdose: Code(s): T50.901A - Poisoning by unspecified drugs, medicaments and biological substances, accidental (unintentional), initial encounter Status: Acute DS: Summary Hospital Course Reason for hospitalization: Altered mental status and shortness of breath Hospital Course: 60-year-old male with history of esophageal cancer and prior tracheostomy presents to the emergency room with altered mental status shortness of breath. He was noted to be wheezing and placed on BiPAP to help with his work of breathing. Initially he was found to be minimally responsive and there was concern about him maintaining his airway however he became more arousable while in the emergency room and was transferred to the ICU for ongoing care. Urine tox screen for patient positive for methamphetamine, benzodiazepine, Time Spent with Patient Time attestation: Total time spent providing and/or coordinating discharge services: DS: Data Data Completed and Pending Labs on day of discharge: Labs from last 24 hours 03/06/21 03/06/21 03/06/21 11:33 05:28 00:51 WBC RBC Hgb Hct MCV MCH MCHC RDW Plt Count MPV Immature Gran % (Auto) Neut % (Auto) Lymph % (Auto) Whitman % (Auto) Eos % (Auto) Baso % (Auto) Lymph # (Auto) Whitman # (Auto) Eos # (Auto) Baso # (Auto) Abs Immat Gran (auto) Absolute Neuts (auto) Absolute Nucleated RBC Nucleated RBC % PT INR APTT Puncture Site Right brachial ABG pH 7.362 ABG pCO2 53.9 H ABG pO2 130.5 H ABG PO2/FiO2 Ratio 4.35 ABG HCO3 29.9 H ABG O2 Saturation 98.5 ABG O2 Content 19.9 ABG Base Excess 3.2 A-a Gradient 20.1 Oxyhemoglobin 95.2 Total Hemoglobin 14.7 O2 Delivery Device Bipap O2 Liters/Min Not Reportable FiO2 30 Expiratory Pressure 5 Inspiratory Pressure 15 Sodium Po
--- NOTE | 2021-03-06 19:34 | PM.TDS ---
Transfer Discharge Sum: Prov Provider Date of admission: 03/06/21 05:34 Primary care physician: CINDER MAN PHYSICIAN Admitting clinician: Valentin Gu MD Consults: 03/06/21 Consult to Physician Routine Comment: Consulting Provider: Joel Salgado Reason for consultation: possible epiglottitis Has provider been notified: Yes Consult to Physician Routine Comment: Consulting Provider: Franklin Brown Reason for consultation: icu Has provider been notified: Yes DS: Admitting Diagnosis Admitting Diagnosis Admitting Diagnosis: (1) Acute encephalopathy: Code(s): G93.40 - Encephalopathy, unspecified Status: Acute (2) Acute drug overdose: Code(s): T50.901A - Poisoning by unspecified drugs, medicaments and biological substances, accidental (unintentional), initial encounter Status: Acute (3) Wheezing: Code(s): R06.2 - Wheezing Status: Acute (4) Hx of tracheostomy: Code(s): Z98.890 - Other specified postprocedural states Status: Acute (5) Abnormal chest xray: Code(s): R93.89 - Abnormal findings on diagnostic imaging of other specified body structures Status: Acute (6) UTI (urinary tract infection): Code(s): N39.0 - Urinary tract infection, site not specified Status: Acute DS: Discharge Diagnosis Discharge Diagnosis (1) Neck infection: Code(s): L08.9 - Local infection of the skin and subcutaneous tissue, unspecified Status: Acute (2) Toxic encephalopathy: Code(s): G92 - Toxic encephalopathy Status: Acute (3) Stridor: Code(s): R06.1 - Stridor Status: Acute (4) Acute and chronic respiratory failure: Code(s): J96.20 - Acute and chronic respiratory failure, unspecified whether with hypoxia or hypercapnia Status: Acute (5) Polysubstance overdose: Code(s): T50.901A - Poisoning by unspecified drugs, medicaments and biological substances, accidental (unintentional), initial encounter Status: Acute (6) Altered mental status: Code(s): R41.82 - Altered mental status, unspecified Status: Acute (7) UTI (urinary tract infection): Code(s): N39.0 - Urinary tract infection, site not specified Status: Acute (8) Abnormal chest xray: Code(s): R93.89 - Abnormal findings on diagnostic imaging of other specified body structures Status: Acute (9) Hx of tracheostomy: Code(s): Z98.890 - Other specified postprocedural states Status: Acute (10) Wheezing: Code(s): R06.2 - Wheezing Status: Acute (11) Acute drug overdose: Code(s): T50.901A - Poisoning by unspecified drugs, medicaments and biological substances, accidental (unintentional), initial encounter Status: Acute (12) Acute encephalopathy: Code(s): G93.40 - Encephalopathy, unspecified Status: Acute Transfer Discharge Sum: Med Medications Active and Home Medications: Home Medications No Home Medications 03/06/21 [History Confirmed 03/06/21] Active Medications Albuterol (Albuterol Sulfate Neb 2.5 Mg/0.5 Ml Inh) 2.5 mg INHALATION Q4HRT PRN PRN Reason: Wheezing Last Admin: 03/06/21 10:33 Dose: 2.5 mg Documented by: Enoxaparin Sodium (Enoxaparin 40 Mg/0.4 Ml Syringe) 40 mg SUB-Q DAILY [facility] Last Admin: 03/06/21 09:37 Dose: 40 mg Documented by: Famotidine (Famotidine 20 Mg/2 Ml Vial) 20 mg IV PUSH Q12HR FRANKY Last Admin: 03/06/21 09:37 Dose: 20 mg Documented by: Hydralazine HCl (Hydralazine Hcl 20 Mg/Ml Vial) 20 mg IV PUSH Q4H PRN PRN Reason: SBP > 160 - Second Choice Sodium Chloride (Normal Saline Iv) 1,000 mls @ 125 mls/hr IV CONT .Q8H [facility] Last Admin: 03/06/21 15:59 Dose: 125 mls/hr Documented by: Ceftriaxone Sodium/Dextrose (Rocephin 1 Gm/D5w 50 Ml) 1 gm in 50 mls @ 100 mls/hr IVPB Q24H FRANKY Stop: 03/06/21 23:59 Last Infusion: 03/06/21 10:06 Dose: Infused Documented by: Ceftriaxone Sodium (Rocephin 2 Gm/D5w 100 Ml
--- NOTE | 2021-03-06 23:41 | PC.NURSE ---
transfered to [facility] 307 via [facility] on 2 l [place] pt transfered self to stretcher deandre called to [facility] [phone]
== END 2021-03-06 23:40 | disposition short-term general hospital (02) ==
LOC: ANHED 03-06 04:18 → ANHICU 03-06 05:58
PROVIDERS: Otolaryngology; Admitting Provider Internal Medicine; Emergency Provider Emergency Medicine; Visit Provider Hospitalist
PROC: (CPT 31505; principal; 2021-03-06 13:30)
DX: G92 Toxic encephalopathy (principal); T50.901A Poisoning by unspecified drugs, medicaments and biological substances, accidental (unintentional), initial encounter; N39.0 Urinary tract infection, site not specified; R06.1 Stridor; R06.2 Wheezing; R93.89 Abnormal findings on diagnostic imaging of other specified body structures; L08.9 Local infection of the skin and subcutaneous tissue, unspecified; Z85.21 Personal history of malignant neoplasm of larynx; R06.02 Shortness of breath
CPT/HCPCS: 31505; 36415; 36600; 51701; 70450; 70490; 71045; 71250; 80053; 80307; 81001; 82550; 82805; 83605; 83880; 84484; 85025; 85610; 85730; 87040; 87086; 93005; 94002; 94640; 96361; 96365; 96372; 96375; 96376; 99285; G0378; G0379; J0696; J1650; J2250; J2310; J2930; J3010; J7030

== ENCOUNTER 2021-12-29 15:33 | Inpatient (IN) | payer OTHER, SELFPAY ==
[2021-12-29] VITALS (63 sets, daily range): BP systolic 61–168; BP diastolic 40–93; PULSE 58–107; RESP 16–24; O2SAT 97–100; BMI 26.6
--- NOTE | ~2021-12-29 | XR_ITS ---
EXAMINATION: XR abdomen NG/feed tube insert DATE: 12/29/2021 17:20 INDICATION: Nasogastric tube placement. TECHNIQUE: A single view of the abdomen was obtained. COMPARISON: None. FINDINGS: The lower abdomen and right lateral aspect of the abdomen are excluded. There are no dilate d loops of bowel. The nasogastric tube tip is in the stomach. IMPRESSION: 1. Nasogastric tube tip in the stomach. Reviewed, dictated and finalized at location A.
--- NOTE | ~2021-12-29 | CT_ITS ---
EXAMINATION: CT brain wo con DATE: 12/29/2021 18:44 INDICATION: Unresponsive. TECHNIQUE: Computed tomography (CT) of the head was performed without intravenous contrast. The mA wa s adjusted according to patient size. Iterative reconstruction technique was employed. The dose-lengt h product was 681.00 mGy-cm. COMPARISON: Head CT 03/06/2021 FINDINGS: There is hypoattenuation of the deep cobb nuclei. There is no intracranial hemorrhage or ab normal mass lesion. The ventricles are normal in size. There is mucosal thickening in the paranasal s inuses. There are old fracture deformity is of the nasal bones. The orbits are normal. The mastoid ai r cells are normal. IMPRESSION: 1. Hypoattenuation of the deep cobb nuclei, consistent with anoxic brain injury. Reviewed, dictated and finalized at location A. IMPRESSION: 1. Hypoattenuation of the deep cobb nuclei, consistent with anoxic brain injury .
--- NOTE | ~2021-12-29 | CT_ITS ---
. EXAMINATION: CT chest abdomen pelvis wo con DATE: 12/29/2021 18:44 INDICATION: Cardiac arrest. TECHNIQUE: Computed tomography (CT) of the chest, abdomen, and pelvis was performed without intraveno us contrast. Automated exposure control and iterative reconstruction technique were employed. The dos e-length product was 1586.48 mGy-cm. COMPARISON: Chest CT 03/06/2021 FINDINGS: CHEST CT: There is moderate emphysema. There is mild atelectasis in the lungs. There are airspace and groundgla ss opacities in left lower lobe with volume loss and occlusion of the left lower lobe bronchus. There is a small right pleural effusion. There is a tracheostomy tube in expected position. The nasogastri c tube tip is in the stomach. The heart size is normal. There are coronary artery calcifications. No pericardial effusion. There are healing fractures of right second through seventh ribs. There are als o acute fractures of right second-seventh ribs. There are acute fractures of left second-sixth ribs. There is a chronic burst fracture of T12. There is severe thoracic spondylosis. ABDOMEN/PELVIS CT: The liver, spleen, gallbladder, pancreas, adrenal glands, and kidneys are normal. There are bilateral inguinal hernias containing fat. There is a right groin catheter with tip in right external iliac ve in. There is a small volume of perihepatic ascites. The bladder is decompressed by a [place] catheter. The prostate is mildly enlarged. There are no dilated loops of bowel. The appendix is normal. There a re no pathologically enlarged lymph nodes. There is mild lumbar spondylosis. IMPRESSION: 1. Airspace and groundglass opacities in left lung lower lobe with volume loss, likely a combination of atelectasis and pneumonia. 2. Small right pleural effusion. 3. Acute bilateral rib fractures. 4. Moderate emphysema. 5. Small volume of ascites. Reviewed, dictated and finalized at location A.
--- NOTE | 2021-12-29 15:52 | PC.NURSE ---
4 Shiley trach placed by EDP
[2021-12-29] MEDS: NOREPINEPHRINE 8 MG/D5W 250 ML 8 MG/250 ML BAG 9.38 MG IV CONT (15:57)
--- NOTE | 2021-12-29 16:02 | PC.NURSE ---
R femoral Triple Lumen Central line placed by EDP.
--- NOTE | 2021-12-29 16:04 | ECG_ITS ---
Measurements Intervals [place] Rate: 73 P: 76 [place]: 218 QRS: 95 QRSD: 129 T: 44 QT: 482 QTc: 535 Interpretive Statements SINUS RHYTHM WITH FIRST DEGREE AV BLOCK BASELINE ARTIFACT LEADS V5 AND V6 POSSIBLE RIGHT VENTRICULAR CONDUCTION DELAY [RSR (QR) IN V1/V2] NONSPECIFIC ST ABNORMALITY PROLONGED QT INTERVAL COMPARED TO ECG 10/16/2020 18:24:39 FIRST DEGREE AV BLOCK NOW PRESENT ST (T WAVE) DEVIATION NOW PRESENT PROLONGED QT INTERVAL NOW PRESENT Electronically Signed On 12-29-2021 17:32:27 CDT by Derek Kwan M.D.
[2021-12-29 16:16] LABS: Hematocrit 42.7 % (42.0-52.0); Mean Corpuscular HGB Conc 28.1 g/dl (32-36); Mean Corpuscular Hemoglobin 24.5 pg (26-34); Mean Corpuscular Volume 87.1 fl (80-100); Platelet Count Result 206 k/mm3 (150-375); Red Cell Distribution Width 16.8 % (11.5-14.5); White Blood Count 17.5 K/mm3 (4.5-10.0)
[2021-12-29 16:22] LABS: Albumin Level 3.8 g/dL (3.5-5.1); Alkaline Phosphatase 108 U/L (38-126); Anion Gap 18 mmol/L (8-16); Bilirubin,Total 0.7 mg/dL (0.2-1.3); Blood Urea Nitrogen 21 mg/dL (9-20); Calcium 8.7 mg/dL (8.4-10.2); Carbon Dioxide 15 mmol/L (22-30); Chloride 105 mmol/L (98-107); Estimated Glomerular Filt Rate 36; Glucose 146 mg/dL (65-110); Lipase 93 U/L (23-300); Potassium 5.4 mmol/L (3.4-5.0); Sodium 138 mmol/L (137-145)
[2021-12-29 16:27] LABS: INR 1.7; Prothrombin Time 18.9 Seconds (11.1-14.7)
[2021-12-29 16:29] LABS: Partial Thromboplastin Time 83.3 SECONDS (22.3-36.8)
[2021-12-29 16:30] LABS: Alanine Aminotransferase 739 U/L (4-50); Aspartate Amino Transferase 1084 U/L (17-59)
[2021-12-29 16:31] LABS: Troponin I 0.022 ng/mL (0.000-0.034)
[2021-12-29 16:44] LABS: Band Neutrophils Percent 1 % (0-6); Eosinophils Absolute Manual 0.35 K/mm3 (0.02-0.5); Eosinophils Percent Manual 2 % (0-4); Lymphocytes Absolute Manual 11.55 K/mm3 (1.1-4.5); Monocytes Absolute Manual 0.87 K/mm3 (0.1-0.90); Monocytes Percent Manual 5 % (3-9); Neutrophils Absolute Manual 4.72 K/mm3 (1.3-6.7); Neutrophils Percent Manual 26 % (46-73); Total Cells Counted 100
[2021-12-29 16:45] LABS: Anisocytosis 2+ (NORMAL); Atypical Lymphocytes Present; Hypochromasia 1+ (NORMAL); Platelet Estimate Adequate (Adequate)
[2021-12-29 17:17] LABS: Alveolar/Arterial O2 Gradient 250.6 mmHg; Base Excess ABG -15.5 mEq/l (+/-2.0); Fractional Inspired Oxygen 100 %; HCO3 ABG 15.1 mEq/l (22.0-26.0); Oxygen Content ABG 18.2 %vol (16.0-22.0); Oxygen Saturation ABG 99.7 % (95.0-100.0); Oxyhemoglobin 98.2 % THb (90.0-100.0); PCO2 ABG 56.1 mmHg (35.0-45.0); PO2 ABG 406.3 mmHg (80.0-100.0); PO2 FiO2 Ratio Arterial Blood 4.06 %; Total Hemoglobin 12.4 g/dL (12.0-18.0)
[2021-12-29 17:18] LABS: Device VENTILATOR; Modified Allen's Test Pass; Site Drawn RIGHT RADIAL; pH ABG 7.047 (7.350-7.450)
[2021-12-29 17:19] LABS: Arterial Blood Gas PEEP 5 cmH2O; Arterial Blood Gas Tidal Volume 450 ml; Arterial Blood Gas Vent Mode CMV; Arterial Blood Gas Ventilator rate 18 /MIN
--- NOTE | 2021-12-29 18:23 | PC.NURSE ---
Patient off unit to CT with RN and RT.
--- NOTE | 2021-12-29 19:15 | PC.NURSE ---
Patient report given to ESAU Mcnamara. All questions answered and care of patient transferred.
--- NOTE | 2021-12-29 19:29 | ED.GENADULT ---
HPI - General Adult General Chief complaint: Cardiac Arrest/CPR Stated complaint: ROSC post cardiac arrest Time Seen by Provider: 12/29/21 16:21 Source: EMS Mode of arrival: EMS Limitations: clinical condition History of Present Illness HPI narrative: 61-year-old with a history of hypertension, CHF s/p tracheostomy, recent discharge from [facility] for pneumonia was brought in as post cardiac arrest. As per the EMS patient was found in his room unresponsive by the family members who later called EMS and then was found to be in asystole , CPR was initiated. Had 3 rounds of epinephrine. Patient has previous tracheostomy ,EMS Endotracheal tube. Upon arrival to the ER patient is unresponsive no spontaneous respirations pupils were fixed and nonreactive. history was mostly obtained from EMS. Onset (ago): hour(s) (1) Related Data Home Medications Medication Instructions Recorded Confirmed No Home Medications 10/16/20 10/16/20 Allergies Allergy/AdvReac Type Severity Reaction Status Date / Time Penicillins Allergy Unknown Other Verified 12/29/21 15:58 Review of Systems Review of Systems: ROS unobtainable: Yes unobtainable due to medical condition Exam Narrative: GENERAL: Unresponsive HEAD: Normocephalic, atraumatic. EYES: Pupils nonreactive ENT: Nares clear NECK: Supple. has tracheostomy with ET tube CHEST: Bilateral breath sounds with BVM HEART: Regular rate and rhythm. No murmur heard. Normal peripheral pulses. ABDOMEN: Soft, nontender, nondistended, normal active bowel sounds. EXTREMITIES: Normal SKIN: Warm, dry, no rash. NEURO: Unresponsive Course Course Emergency Course: Patient continued to maintain his pulse . Levophed was initiated for hypotension, patient was given 3 L of IV fluids blood cultures were obtained IV antibiotic was initiated. CT of the head, chest , abdomen and pelvis was done. He still remains unresponsive. Patient will be admitted to ICU. Supervising Producer was consulted and hospitalist was notified. Vital Signs Vital signs: Vital Signs Pulse Rate 74 12/29/21 15:27 Blood Pressure 66/49 L 12/29/21 15:27 Pulse Oximetry 100 12/29/21 15:27 Pulse Rate 66 12/29/21 18:48 Respiratory Rate 17 12/29/21 18:48 Blood Pressure 155/83 H 12/29/21 18:48 Pulse Oximetry 100 12/29/21 18:48 Procedures Central Line Placement Right Femoral: Performed Emergently - Given emergent patient condition, temporal constraints may have precluded informed consent.: Yes Max. Sterile Barrier Technique: Caps and large sterile sheet Central Line Prep: 2% chlorhexidine scrub Technique: US-Guided Ultrasound Used for Placement: Yes Central Line Lumen Inserted: triple (7.5) Post Procedure: sutured in place, good blood return, all ports aspirated, flushed, capped and sterile dressing applied Patient Tolerated Procedure: no complications Complications: none Other Procedure Procedure 1: Other Procedure: i cannulate his tracheostomy with #4 [place] Medical Decision Making MDM Narrative Medical decision making narrative: 61-year-old was brought in unresponsive initially was in asystole brief CPR was done with 3 rounds of epi patient had ROSC upon arrival patient still remained responsive, no spontaneous respirations and hypotensive. Patient was started on IV Levophed, he was maintained his blood pressure and heart rate. We will do a CT of the head chest and abdomen. We will continue to monitor. Differential Diagnosis Differential Diagnosis: ME cardiac arrhythmia, PE Vital Signs Vital Signs: Vital Signs Pulse Rate 74 12/29/21 15:27 Blood Pressure 66/49 L 12/29/21 15:27 Pulse Oximetry 100 12/29/21 15:27 Pulse Rate 66 12/29/21 18:48 Respiratory Rate 17 12/29/21 18:48 Blood Pressure 155/83 H 12/29/21 18:48 Pulse Oximetry 100 12/29/21 18:48 Lab Data Result diagrams: 12/29/21 15:41
--- NOTE | 2021-12-29 19:39 | PM.IMHP ---
H&P: HPI History of Present Illness Date/Time: Patient requires inpatient monitoring with expected length of stay to exceed 2 midnights for management of care. 12/29/21 19:39 Chief Complaint: Cardiac arrest Narrative: Mr. Pruitt is a 61-year-old gentleman who was brought to the emergency room via ambulance after being found by his family unresponsive and in asystole. I am unable to obtain any type of history from the patient but per the emergency room records when EMS arrived CPR was initiated and ROSC was achieved after 14 minutes of CPR. Per the emergency room records patient's family has that the patient was in his bedroom and had not been seen for approximately 45 minutes on the checked on the patient he was found to be unresponsive with no pulse. There is no family at bedside so I am unable to get any history from family. Per EMS patient had recently been at [facility] for an unknown reason and had been discharged home and had a tracheostomy. Upon evaluation in the emergency room patient is on the ventilator and totally unresponsive. Patient will not respond to verbal or tactile stimulation. Patient is on no sedation. Patient is on Levophed at this time. Review of Systems Review of Systems: I am unable to obtain full review of systems from patient secondary to clinical condition. Meds Home Medications and Allergies Home Medications Medication Instructions Recorded Confirmed Type No Home Medications 10/16/20 10/16/20 History Allergies Allergy/AdvReac Type Severity Reaction Status Date / Time Penicillins Allergy Unknown Other Verified 12/29/21 15:58 Vital Signs Vital Signs - 24 hr 12/29/21 15:27 12/29/21 15:57 12/29/21 16:01 Pulse Rate 74 66 66 Respiratory Rate Blood Pressure 66/49 L 62/40 L 61/41 L Pulse Oximetry 100 100 12/29/21 16:12 12/29/21 16:24 12/29/21 16:27 Pulse Rate 68 70 72 Respiratory Rate 17 Blood Pressure 68/47 L Pulse Oximetry 100 100 12/29/21 16:30 12/29/21 16:31 12/29/21 16:32 Pulse Rate 73 73 73 Respiratory Rate 18 18 18 Blood Pressure 78/52 L 80/52 L Pulse Oximetry 100 100 100 12/29/21 16:35 12/29/21 16:40 12/29/21 16:41 Pulse Rate 74 74 74 Respiratory Rate 18 18 18 Blood Pressure 81/53 L 82/54 L Pulse Oximetry 100 100 100 12/29/21 16:46 12/29/21 17:00 12/29/21 17:01 Pulse Rate 74 75 75 Respiratory Rate 18 18 18 Blood Pressure 85/56 L Pulse Oximetry 100 100 100 12/29/21 17:05 12/29/21 17:06 12/29/21 17:23 Pulse Rate 76 76 76 Respiratory Rate 18 18 18 Blood Pressure 95/60 L Pulse Oximetry 100 100 100 12/29/21 17:26 12/29/21 17:30 12/29/21 17:31 Pulse Rate 74 72 72 Respiratory Rate 18 18 18 Blood Pressure 103/59 L 100/61 Pulse Oximetry 100 100 100 12/29/21 17:35 12/29/21 17:36 12/29/21 17:41 Pulse Rate 71 71 71 Respiratory Rate 18 18 18 Blood Pressure 106/51 L 107/55 L Pulse Oximetry 100 100 100 12/29/21 17:44 12/29/21 17:45 12/29/21 17:46 Pulse Rate 70 71 71 Respiratory Rate 18 18 Blood Pressure 113/60 Pulse Oximetry 100 100 100 12/29/21 17:51 12/29/21 18:00 12/29/21 18:01 Pulse Rate 71 71 71 Respiratory Rate 17 17 17 Blood Pressure 120/59 L 126/65 Pulse Oximetry 100 100 100 12/29/21 18:06 12/29/21 18:07 12/29/21 18:11 Pulse Rate 71 70 70 Respiratory Rate 18 17 16 Blood Pressure 136/74 144/74 H Pulse Oximetry 100 100 100 12/29/21 18:12 12/29/21 18:15 12/29/21 18:16 Pulse Rate 71 71 69 Respiratory Rate 16 17 18 Blood Pressure 85/56 L 150/77 H Pulse Oximetry 100 100 100 12/29/21 18:47 12/29/21 18:48 Pulse Rate 64 66 Respiratory Rate 16 17 Blood Pressure 155/83 H Pulse Oximetry 100 100 Exam Narrative: Constitutional: Patient is a 59-year-old gentleman who is unresponsive to any type of stimulation and is on ventilator with no sedation at this time. HEENT: Moist mucous membranes. No scleral icterus. No lymphadenopathy. Pupils are equal at 6 mm and not reactiv
[2021-12-29 19:40] LABS: Barbiturate Screen Urine Negative (Negative); Benzodiazepines Screen Urine Positive (Negative)
[2021-12-29 19:41] LABS: Cannabinoid Screen Urine Positive (Negative); Cocaine Screen Urine Negative (Negative); Methadone Screen Urine Negative (Negative); Opiate Screen Urine Negative (Negative); Phencyclidine Screen Urine Negative (Negative)
--- NOTE | 2021-12-29 19:47 | PC.NURSE ---
LISBET from [facility].
[2021-12-29 19:53] LABS: Magnesium 2.9 mg/dL (1.6-2.3)
[2021-12-29 20:33] LABS: Amphetamine Screen Urine Positive (Negative)
--- NOTE | 2021-12-29 21:30 | ADMGEN ---
This patient, Flip Pruitt, was admitted to Intensive Care Unit-6. Patient/family oriented to hospital policies and general routines including ID bracelet, bed and alarms, visiting hours, pain management, procedures, bathroom and other care routines, personal items, smoking policy, room service/diet, and visiting hours. Information on how to activate the Rapid Response Team has been discussed. Patient/Family are encouraged to report perceived risks to care and to ask questions if they do not understand what they are told or what they should do.
[2021-12-29] MEDS: SODIUM BICARBONATE 8.4% 100 MEQ in DEXTROSE 5% 1,000 ML 1,000 ML 50 MEQ IV CONT (21:50)
[2021-12-29 23:15] LABS: Alveolar/Arterial O2 Gradient 322.2 mmHg; Base Excess ABG -12.6 mEq/l (+/-2.0); Fractional Inspired Oxygen 70 %; Oxygen Content ABG 19.8 %vol (16.0-22.0); Oxygen Saturation ABG 97.5 % (95.0-100.0); Oxyhemoglobin 96.4 % THb (90.0-100.0); PO2 ABG 126.4 mmHg (80.0-100.0); PO2 FiO2 Ratio Arterial Blood 1.81 %; Total Hemoglobin 14.5 g/dL (12.0-18.0)
[2021-12-29 23:17] LABS: pH ABG 7.151 (7.350-7.450)
[2021-12-29 23:18] LABS: Device VENTILATOR; Modified Allen's Test Pass; Site Drawn RIGHT RADIAL
[2021-12-29 23:19] LABS: Arterial Blood Gas PEEP 5 cmH2O; Arterial Blood Gas Tidal Volume 450 ml; Arterial Blood Gas Vent Mode CMV; Arterial Blood Gas Ventilator rate 24 /MIN
[2021-12-30] VITALS (17 sets, daily range): BP systolic 92–167; BP diastolic 62–100; PULSE 85–112; RESP 24–27; TEMP 35.6–37; O2SAT 96–100; BMI 26.6
[2021-12-30] MEDS: metroNIDAZOLE 500 MG/ISO 100ML 500 MG/100 ML BAG 100 MG IVPB ×2 (00:08→05:04)
[2021-12-30 00:47] LABS: Albumin Level 3.5 g/dL (3.5-5.1); Alkaline Phosphatase 216 U/L (38-126); Anion Gap 11 mmol/L (8-16); Bilirubin,Total 1.4 mg/dL (0.2-1.3); Blood Urea Nitrogen 33 mg/dL (9-20); Calcium 7.1 mg/dL (8.4-10.2); Carbon Dioxide 18 mmol/L (22-30); Chloride 106 mmol/L (98-107); Estimated CRCL calculation 37 ml/min; Estimated Glomerular Filt Rate 32; Glucose 235 mg/dL (65-110); Potassium 4.9 mmol/L (3.4-5.0); Sodium 135 mmol/L (137-145)
[2021-12-30 01:18] LABS: Alanine Aminotransferase 1126 U/L (4-50); Aspartate Amino Transferase 1943 U/L (17-59)
[2021-12-30] MEDS: hydrALAZINE HCL 20 MG/ML VIAL 10 MG IV PUSH (01:25)
[2021-12-30 05:21] LABS: Hematocrit 43.2 % (42.0-52.0); Hemoglobin 13.2 g/dL (14.0-18.0); Mean Corpuscular HGB Conc 30.6 g/dl (32-36); Mean Corpuscular Hemoglobin 24.3 pg (26-34); Mean Corpuscular Volume 79.6 fl (80-100); Mean Platelet Volume 8.9 fl (7.4-10.4); Platelet Count Result 175 k/mm3 (150-375); Red Blood Count 5.43 M/mm3 (4.6-6.20); Red Cell Distribution Width 16.6 % (11.5-14.5); White Blood Count 18.4 K/mm3 (4.5-10.0)
[2021-12-30 05:36] LABS: Alveolar/Arterial O2 Gradient 285.4 mmHg; Base Excess ABG -11.3 mEq/l (+/-2.0); Carboxyhemoglobin 0.3 % THb (0-2.0); Fractional Inspired Oxygen 70 %; HCO3 ABG 16.8 mEq/l (22.0-26.0); Methemoglobin ABG 0.4 %THb (0-1.5); Oxygen Content ABG 19.5 %vol (16.0-22.0); Oxygen Saturation ABG 98.7 % (95.0-100.0); Oxyhemoglobin 97.8 % THb (90.0-100.0); PCO2 ABG 45.9 mmHg (35.0-45.0); PO2 ABG 164.4 mmHg (80.0-100.0); PO2 FiO2 Ratio Arterial Blood 2.35 %; Reduced Hemoglobin 1.5 %THb (0-5.0)
[2021-12-30 05:38] LABS: Device VENTILATOR; Modified Allen's Test Pass; Site Drawn RIGHT RADIAL; pH ABG 7.182 (7.350-7.450)
[2021-12-30 05:39] LABS: Arterial Blood Gas PEEP 5 cmH2O; Arterial Blood Gas Tidal Volume 450 ml; Arterial Blood Gas Vent Mode CMV; Arterial Blood Gas Ventilator rate 24 /MIN
[2021-12-30 05:43] LABS: Albumin Level 3.6 g/dL (3.5-5.1); Alkaline Phosphatase 166 U/L (38-126); Anion Gap 11 mmol/L (8-16); Bilirubin,Total 0.9 mg/dL (0.2-1.3); Blood Urea Nitrogen 42 mg/dL (9-20); Calcium 7.2 mg/dL (8.4-10.2); Carbon Dioxide 18 mmol/L (22-30); Chloride 106 mmol/L (98-107); Estimated CRCL calculation 32 ml/min; Estimated Glomerular Filt Rate 28; Glucose 181 mg/dL (65-110); Magnesium 1.7 mg/dL (1.6-2.3); Potassium 4.3 mmol/L (3.4-5.0); Sodium 135 mmol/L (137-145)
[2021-12-30 06:48] LABS: Alanine Aminotransferase 1134 U/L (4-50); Aspartate Amino Transferase > 1500 U/L (17-59)
[2021-12-30 07:37] LABS: Band Neutrophils Percent 7 % (0-6); Lymphocytes Absolute Manual 0.18 K/mm3 (1.1-4.5); Monocytes Absolute Manual 0.18 K/mm3 (0.1-0.90); Monocytes Percent Manual 1 % (3-9); Neutrophils Absolute Manual 18.03 K/mm3 (1.3-6.7); Neutrophils Percent Manual 91 % (46-73); Total Cells Counted 100
[2021-12-30 07:38] LABS: Platelet Estimate Adequate (Adequate)
[2021-12-30] MEDS: METOPROLOL TARTRATE 6.25 MG TABLET FEED TUBE (08:58)
[2021-12-30] MEDS: PANTOPRAZOLE SODIUM IV 40 MG VIAL IV PUSH (08:58)
[2021-12-30] MEDS: SODIUM BICARBONATE 8.4% 150 MEQ in WATER, STERILE FOR INJECTION 950 ML 125 MEQ IV CONT (08:58)
--- NOTE | 2021-12-30 09:07 | WPDCNINT ---
Assessment and Plan Assessment and plan (1) Anoxic brain injury: Code(s): G93.1 - Anoxic brain damage, not elsewhere classified Status: Acute Assessment and Plan: When patient was brought to the ER he had no neurological response is pupils were fixed and unreactive fluid. CT scan showed signs of anoxic injury on presentation When I received sign-out from ED physician it appears the patient may be close to by Neurological criteria since he had no clinical neurological activity. His urine drug screen did come back positive benzodiazepine amphetamines and marijuana Since patient off had a unwitnessed cardiac arrest with unknown total down time along with non shockable rhythm, I requested overnight provider to initiate moderate TTM protocol which would allow us to proceed without giving any sedation or paralytic for better and more reliable neurological exam. EEG is also ordered Will consult neurology (2) Transaminitis: Code(s): R74.01 - Elevation of levels of liver transaminase levels Status: Acute Assessment and Plan: Likely secondary to shock liver from hypotension shock Monitor levels CT abdomen pelvis showed normal gallbladder and liver (3) JASON (acute kidney injury): Code(s): N17.9 - Acute kidney failure, unspecified Status: Acute Assessment and Plan: Likely secondary to hypertension shock baseline creatinine is unknown IV fluids IV bicarb for metabolic acidosis Monitor urine output electrolytes and creatinine CT abdomen pelvis did not show any hydronephrosis (4) Cardiac arrest: Code(s): I46.9 - Cardiac arrest, cause unspecified Status: Acute Assessment and Plan: Unknown etiology at this time Elevated troponin could be the result of CPR and cardiac arrest Echocardiogram ordered (5) Fracture of rib: Qualifiers: Encounter type: initial encounter Fracture type: closed Laterality: bilateral Rib fracture type: multiple ribs Qualified Code(s): S22.43XA - Multiple fractures of ribs, bilateral, initial encounter for closed fracture Code(s): S22.39XA - Fracture of one rib, unspecified side, initial encounter for closed fracture Status: Acute Assessment and Plan: Likely secondary to CPR Supportive care (6) Sepsis: Code(s): A41.9 - Sepsis, unspecified organism Status: Acute Assessment and Plan: Likely secondary to pneumonia Patient be she was hypotensive and required Levophed. IV fluids were administered Blood pressure has now improved and patient has been off of Levophed (7) Pneumonia: Code(s): J18.9 - Pneumonia, unspecified organism Status: Acute Assessment and Plan: Possible aspiration Continue vancomycin cefepime and Flagyl Blood cultures have been sent and are pending (8) Upper GI bleed: Code(s): K92.2 - Gastrointestinal hemorrhage, unspecified Status: Acute Assessment and Plan: NG output is bloody. Hemoglobin has been stable so far Continue to monitor hemoglobin NPO IV PPI (9) Elevated troponin: Code(s): R77.8 - Other specified abnormalities of plasma proteins Status: Acute Assessment and Plan: Elevated troponin on presentation but the levels are essentially flat EKG did not show any ST elevation Echocardiogram ordered Low-dose beta-kacey started since patient is now off of vasopressors and blood pressure is elevated Not a candidate for aspirin or anticoagulation due to upper GI bleed Will consult Cardiology depending on family's goal of care (10) Acute and chronic respiratory failure: Code(s): J96.20 - Acute and chronic respiratory failure, unspecified whether with hypoxia or hypercapnia Status: Acute Assessment and Plan: Secondary to respiratory failure and appears the patient has underlying COPD ABG and CT reviewed Vent settings reviewed A weaning will depend on his neurological status Additional Plan D
--- NOTE | 2021-12-30 12:45 | PM.EVENT ---
Event Note Event Note Event Note: Family Meeting Patient neuro status remains unchanged. He has not been on any sedation since he arrived to the hospital. He is unresponsive to pain, has no cough or gag reflex and is pupils are fixed and dilated. He does breathe over the ventilator and has a respiratory effort. I met with patient's , son and sister at bedside in presence of patient's nurse Susie to discuss medical decisions and level of care. I updated them with patient's current condition, neuro exam, current treatment plan, the fact that patient's urine drug screen was positive with methamphetamine benzodiazepine and marijuana, expected prognosis and different potential outcomes. Patient's told me the patient would not want to live like this would not want this aggressive intervention and treatment considering the the cardiac arrest and his brain injury. They, in accordance with pt's wishes, want to discontinue all medical therapy and institute comfort measures only. They are waiting for other family members to arrive. Until that happens they have requested the patient be made DNR and cooling protocol discontinued to prevent further discomfort to patient's body. I have explained them the comfort measures procedure and when they are ready can be instituted. I have explained them that, once comfort measures are instituted, I will use opioids, anxiolytics and other agents on as needed basis to promote comfort and discontinue all medical therapy, lab testing and invasive monitoring. Once patient is placed on comfort measures he will eventually . They verbalized understanding and want to proceed once all family members have visited him.
[2021-12-30] MEDS: LORazepam INJ (*CRX) 2 MG/ML VIAL IV PUSH (17:33)
[2021-12-30] MEDS: MORPHINE SULFATE INJ (*CRX) 10 MG/ML AMP 5 MG IV PUSH (17:34)
--- NOTE | 2021-12-30 17:44 | PC.NURSE ---
Patient at 1737 with family at bedside.
--- NOTE | 2021-12-30 17:54 | PM.DDS ---
Discharge Summary Probable Cause of Probable Cause of : Cardiopulmonary arrest Summary Hospital Course: 61yo male status post tracheostomy and recently discharged from [facility] was brought to the emergency room via ambulance after being found by his family unresponsive and in asystole. His last known time at baseline was 45 minutes prior to that. He did not receive any bystander CPR. Upon EMS arrival, patient found to be in asystole. CPR was initiated and ROSC was achieved after 14 minutes of CPR. Patient was intubated through his trach and central line placed and pressors started. ANtibiotics were started. Patient was totally unresponsive to pain and had no neurological response so sedation was held. Some hx provided by family later. CT scan brain showed signs of anoxic injury on presentation. UDS did come back positive benzodiazepine, amphetamines and marijuana. Family made aware of the severity of the patient's condition. Family decided to make the patient comfortable. Patient was made comfort measures and was extubated. He on 12/30/21. 35 minutes spent on the care of this patient including documentation.
== END 2021-12-30 17:37 | disposition expired | DRG 720 ==
LOC: ANHED 19:30 → ANHICU 12-30 02:34
PROVIDERS: Internal Medicine; Nurse Practitioner Adult Health; Admitting Provider Family Medicine; Emergency Provider Family Medicine; PCP Internal Medicine Gastroenterology; Visit Provider Internal Medicine
DX: A41.9 Sepsis, unspecified organism (principal); I46.9 Cardiac arrest, cause unspecified; J96.20 Acute and chronic respiratory failure, unspecified whether with hypoxia or hypercapnia; Z93.0 Tracheostomy status; G93.1 Anoxic brain damage, not elsewhere classified; J18.9 Pneumonia, unspecified organism; N17.9 Acute kidney failure, unspecified; S22.43XA Multiple fractures of ribs, bilateral, initial encounter for closed fracture; X58.XXXA Exposure to other specified factors, initial encounter; R74.01 Elevation of levels of liver transaminase levels; K92.2 Gastrointestinal hemorrhage, unspecified; R77.8 Other specified abnormalities of plasma proteins; F19.10 Other psychoactive substance abuse, uncomplicated; F17.210 Nicotine dependence, cigarettes, uncomplicated; Z66 Do not resuscitate; Z85.21 Personal history of malignant neoplasm of larynx; Z79.899 Other long term (current) drug therapy; Z88.0 Allergy status to penicillin
CPT/HCPCS: 36415; 36556; 36600; 70450; 71250; 74176; 80053; 80307; 82375; 82805; 83050; 83690; 83735; 84484; 85025; 85610; 85730; 87040; 93005; 96365; 96366; 99291; A4629; A9270; C1751; C9113; J0360; J0692; J2060; J2270; J3370; J7030; J7060; J7070; J7120